=== PATIENT | female | born 1965 | race African-American/Black ===

== ENCOUNTER 2019-06-29 09:43 | Inpatient (IN) | payer MEDICAID, OTHER ==
[2019-06-29] VITALS: BP 108/49
[~2019-06-29] VITALS: Ht 167.6 cm; Wt 92.5 kg
[2019-06-29 10:48] LABS: BASOPHILS % 0.8 % (0.0-2.0); EOSINOPHILS % 2.6 % (0.0-5.0); HEMOGLOBIN. 12.6 g/dL (12.0-16.0); LYMPHOCYTES % 41.9 % (20.0-50.0); MEAN CORPUSCULAR HEMOGLOBIN 31.8 pg (28.0-32.0); MEAN PLATELET VOLUME 7.3 fl (7.4-10.4); MONOCYTES % 6.4 % (2.0-8.0); NEUTROPHILS % 48.3 % (40.0-76.0); PLATELET 305 x1000/uL (130-400); RED BLOOD CELL COUNT 3.98 mill/uL (4.2-5.4); RED CELL DISTRIBUTION WIDTH 12.8 % (11.6-14.6)
[2019-06-29 10:54] LABS: CHLORIDE 110 mEq/L (98-107)
[2019-06-29 13:00] VITALS: BP 169/90
[2019-06-29] MEDS ORDERED: ONDANSETRON HCL 4MG/2ML INJ IV PRN (15:45)
[2019-06-29] MEDS ORDERED: LORAZEPAM 0.5MG TABLET PO PRN (15:45)
[2019-06-29] MEDS ORDERED: HYDROCODONE/ACETAMINOPHEN 5/325MG TABLET PO PRN (15:45)
[2019-06-29] MEDS ORDERED: ACETAMINOPHEN 325MG TABLET PO PRN (15:45)
[2019-06-29] MEDS ORDERED: CLONIDINE 0.1MG TABLET PO PRN (15:45)
[2019-06-29] MEDS ORDERED: DOCUSATE SODIUM 100MG CAPSULE PO PRN (15:45)
[2019-06-29] MEDS ORDERED: IPRATROPIUM/ALBUTEROL 0.5-3(2.5)MG/3ML NEB HHN PRN (15:45)
[2019-06-29 16:00] VITALS: BP 119/62
[2019-06-29] MEDS ORDERED: DULA0.75 SQ (17:02)
[2019-06-29] MEDS ORDERED: LACO200T2 PO (17:02)
[2019-06-29] MEDS ORDERED: LISI-604 PO (17:02)
[2019-06-29] MEDS ORDERED: BRIV50TA PO (17:02)
[2019-06-29] MEDS ORDERED: LEVE750T4 PO (17:02)
[2019-06-29] MEDS ORDERED: NON FORMULARY PATIENT HOME MED XX SCH (17:15)
[2019-06-29] MEDS ORDERED: LORAZEPAM 2MG/ML CPJ IV PRN (17:30)
[2019-06-29] MEDS ORDERED: DEXTROSE 50% WATER 50ML SYRINGE IV PRN ×2 (17:30)
[2019-06-29 17:37] VITALS: BP 119/62
[2019-06-29 19:31] LABS: *AMPHETAMINES SCREEN URINE NEGATIVE (NEGATIVE); *BARBITURATES SCREEN URINE NEGATIVE (NEGATIVE); *BENZODIAZEPINES SCREEN URINE NEGATIVE (NEGATIVE); *COCAINE SCREEN URINE NEGATIVE (NEGATIVE); METHADONE URINE SCREEN NEGATIVE (NEGATIVE)
[2019-06-29 19:32] LABS: CANNABINOID URINE SCREEN NEGATIVE (NEGATIVE); OPIATES URINE SCREEN NEGATIVE (NEGATIVE); PHENCYCLIDINE URINE SCREEN NEGATIVE (NEGATIVE)
[2019-06-29 20:00] VITALS: BP 134/58
[2019-06-29] MEDS ORDERED: BLOOD SUGAR DIAGNOSTIC STRIP TEST SCH (21:00)
[2019-06-29] MEDS ORDERED: INSULIN LISPRO 100 UNITS/ML SUBCUT SCH (21:00)
[2019-06-29] MEDS: INSULIN LISPRO 100 UNITS/ML SUBCUT SCH (21:00)
[2019-06-29] MEDS ORDERED: FAMOTIDINE 20MG TABLET PO SCH (21:00)
[2019-06-29] MEDS: LACOSAMIDE 100 MG TABLET PO SCH (21:40)
[2019-06-29] MEDS: LEVETIRACETAM 500MG TABLET PO SCH (21:40)
[2019-06-29] MEDS: BLOOD SUGAR DIAGNOSTIC STRIP TEST SCH (21:40)
[2019-06-29 23:59] VITALS: BP 108/49
[2019-06-30 04:00] VITALS: BP 121/69
[2019-06-30] MEDS: INSULIN LISPRO 100 UNITS/ML SUBCUT SCH ×2 (06:37→12:15)
[2019-06-30] MEDS: BLOOD SUGAR DIAGNOSTIC STRIP TEST SCH ×2 (06:37→12:07)
[2019-06-30 07:15] LABS: PROTHROMBIN TIME 10.3 sec (9.6-11.0)
[2019-06-30 07:22] LABS: BASOPHILS % 0.4 % (0.0-2.0); EOSINOPHILS % 2.8 % (0.0-5.0); HEMATOCRIT. 34.5 % (36.0-48.0); HEMOGLOBIN. 11.8 g/dL (12.0-16.0); MEAN CORPUSCULAR HEMOGLOBIN 31.8 pg (28.0-32.0); MEAN CORPUSCULAR VOLUME 92.7 fL (81.0-99.0); MEAN PLATELET VOLUME 7.9 fl (7.4-10.4); MONOCYTES % 7.6 % (2.0-8.0); NEUTROPHILS % 47.2 % (40.0-76.0); PLATELET 268 x1000/uL (130-400); RED BLOOD CELL COUNT 3.72 mill/uL (4.2-5.4); RED CELL DISTRIBUTION WIDTH 12.9 % (11.6-14.6)
[2019-06-30 07:54] LABS: CHLORIDE 107 mEq/L (98-107)
[2019-06-30 08:00] VITALS: BP_SYST 128; BP_SYST 131; BP_DIAS 59; BP_DIAS 61
[2019-06-30] MEDS: LEVETIRACETAM 500MG TABLET PO SCH (08:50)
[2019-06-30] MEDS: LACOSAMIDE 100 MG TABLET PO SCH (08:51)
[2019-06-30 12:00] VITALS: BP 131/59
[2019-06-30 14:54] VITALS: BP 131/59
== END 2019-06-30 15:30 | disposition home or self-care (01) | DRG 201 ==
LOC: ER 09:43 → 5WST 11:43 → ENRESERV 12:23
PROVIDERS: ADMIT Internal Medicine; ATTEND Internal Medicine
DX: R00.1 Bradycardia, unspecified (principal); E03.9 Hypothyroidism, unspecified; I25.2 Old myocardial infarction; Z88.9 Allergy status to unspecified drugs, medicaments and biological substances; E11.9 Type 2 diabetes mellitus without complications; F41.9 Anxiety disorder, unspecified; G40.109 Localization-related (focal) (partial) symptomatic epilepsy and epileptic syndromes with simple partial seizures, not intractable, without status epilepticus; K21.9 Gastro-esophageal reflux disease without esophagitis; Z82.3 Family history of stroke; Z82.49 Family history of ischemic heart disease and other diseases of the circulatory system; Z86.73 Personal history of transient ischemic attack (TIA), and cerebral infarction without residual deficits; Z90.710 Acquired absence of both cervix and uterus; Z79.84 Long term (current) use of oral hypoglycemic drugs
CPT/HCPCS: 36415; 71045; 80048; 80305; 80339; 82962; 83036; 83735; 83880; 84443; 84484; 93005; 93306; 99285; J1815